=== PATIENT | female | born 1955 | race Two or more races ===

== ENCOUNTER 2018-07-31 18:08 | Emergency (ER) | payer OTHER, MEDICAID ==
[~2018-07-31] VITALS: Ht 157.5 cm; Wt 84.4 kg
[~2018-07-31 18:08] MED LIST: ALEN70TA2 PO; CHOL20007 PO; DOCU-94 PO; FOLI1TAB6 PO; GABA300C10 PO; HYDR-4441 OR; HYDR-4683 PO; LEUC5TAB PO; LORA10CA7 PO; METH2.5T3 PO; METO25TA62 PO; NARA2.5T PO; PANT1INJ3 IV; PANT40TA2 PO; QUET25TA37 PO; RIZA5TAB14 OR; SERT-138 PO; SIMV-8 PO; TOFA5TAB OR; TRAZ50TA2 PO; VENL75TA PO
[2018-07-31 21:05] VITALS: BP 155/70
[2018-07-31] MEDS ORDERED: HYDROcodone-ACET 10/325MG TAB PO ONE (22:45)
== END 2018-07-31 23:33 | disposition home or self-care (01) ==
LOC: ER 18:08
DX: S13.4XXA Sprain of ligaments of cervical spine, initial encounter (principal); S16.1XXA Strain of muscle, fascia and tendon at neck level, initial encounter; M19.90 Unspecified osteoarthritis, unspecified site; J44.9 Chronic obstructive pulmonary disease, unspecified; E78.5 Hyperlipidemia, unspecified; I10 Essential (primary) hypertension; Z79.899 Other long term (current) drug therapy; V49.49XA Driver injured in collision with other motor vehicles in traffic accident, initial encounter; Y93.89 Activity, other specified; Y99.8 Other external cause status; Y92.488 Other paved roadways as the place of occurrence of the external cause
CPT/HCPCS: 72040; 72100

== ENCOUNTER 2020-10-02 20:10 | Emergency (ER) | payer OTHER, MEDICAID ==
[~2020-10-02] VITALS: Ht 157.5 cm; Wt 83.0 kg
[~2020-10-02 20:10] MED LIST changes: +HYDR-4188 OR; -HYDR-4441 OR; -HYDR-4683 PO; +HYDR-4833 PO; +METH2.5T PO; -METH2.5T3 PO; -METO25TA62 PO; +METO25TA93 PO; -RIZA5TAB14 OR; +RIZA5TAB35 OR; -SERT-138 PO; +SERT50TA PO; -VENL75TA PO; +VENL75TA2 PO
[2020-10-02 21:58] VITALS: BP 126/85
== END 2020-10-02 22:38 | disposition home or self-care (01) ==
LOC: ER 20:13
DX: S62.647A Nondisplaced fracture of proximal phalanx of left little finger, initial encounter for closed fracture (principal); S80.212A Abrasion, left knee, initial encounter; S00.31XA Abrasion of nose, initial encounter; E78.5 Hyperlipidemia, unspecified; I10 Essential (primary) hypertension; J44.9 Chronic obstructive pulmonary disease, unspecified; Z79.899 Other long term (current) drug therapy; W19.XXXA Unspecified fall, initial encounter; Y93.89 Activity, other specified; Y92.89 Other specified places as the place of occurrence of the external cause; Y99.8 Other external cause status
CPT/HCPCS: 29130; 70486; 73100; 73140; 73562

== ENCOUNTER 2022-03-19 16:03 | Inpatient (IN) | payer OTHER, MEDICAID ==
[~2022-03-19] VITALS: Ht 157.5 cm; Wt 80.1 kg
[~2022-03-19 16:03] MED LIST changes: +VENL1TAB99 PO; -VENL75TA2 PO
[2022-03-19 16:55] LABS: Basophils # (auto) 0 10 ^3/uL (0-0.2); Basophils % (auto) 0.2 % (0.0-2.0); Eosinophils # (auto) 0.1 10 ^3/uL (0-0.8); Eosinophils % (auto) 0.8 % (0.0-7.0); Hematocrit 42.6 % (36.0-46.0); Hemoglobin 14.8 g/dL (12.2-16.2); Lymphocytes # (auto) 1.1 10 ^3/uL (0.4-5.4); Lymphocytes % (auto) 15.9 % (10.0-50.0); Mean Corpuscular Hemoglobin 32.9 pg (28.0-32.0); Mean Corpuscular Hgb Conc. 34.7 g/dL (32.0-36.0); Mean Corpuscular Volume 94.7 fL (80.0-100.0); Monocytes # (auto) 0.3 10 ^3/uL (0-1.3); Monocytes % (auto) 5.1 % (0.0-12.0); Neutrophils # (auto) 5.4 10 ^3/uL (1.6-8.6); Red Cell Distribution Width 14.4 % (11.8-14.3); White Blood Cell 6.9 10^3/uL (4.4-10.8)
[2022-03-19 17:13] LABS: Albumin 4.1 g/dL (3.4-5.0); BUN/Creatinine Ratio 16.7; Calcium 9.6 mg/dL (8.5-10.1); Potassium 3.3 mmol/L (3.5-5.1)
[2022-03-19 17:16] LABS: Bilirubin, Total 0.6 mg/dL (0.2-1.0); Total Protein 7.9 g/dL (6.4-8.2)
[2022-03-20] MEDS ORDERED: ACETAMINOPHEN 325 MG TAB PO PRN (03:30)
[2022-03-20] MEDS ORDERED: POTASSIUM CHL 20 Meq TABLET PO ONE (03:30)
[2022-03-20] MEDS ORDERED: ONDANSETRON HCL 4 MG/2 ML VIAL IV PRN (03:30)
[2022-03-20] MEDS ORDERED: HYDROcodone-ACET 5/325MG TAB PO PRN (03:30)
[2022-03-20] MEDS ORDERED: SUMAtriptan SUCCINATE 25 MG TAB PO PRN (03:30)
[2022-03-20] MEDS ORDERED: MECLIZINE HCL 25 MG TAB PO ONE (03:45)
[2022-03-20] MEDS ORDERED: MECLIZINE HCL 25 MG TAB PO PRN (03:45)
[2022-03-20 09:30] VITALS: BP 139/78
[2022-03-20] MEDS: GABAPENTIN 300 MG CAP PO SCH ×2 (10:04→22:09)
[2022-03-20] MEDS: SERTRALINE HCL 50 MG TAB PO SCH (10:04)
[2022-03-20] MEDS: PANTOPRAZOLE 40 MG TAB PO SCH (10:04)
[2022-03-20] MEDS: hydrOXYchloroQUINE SULFATE 200 MG TAB PO SCH ×2 (10:05→22:09)
[2022-03-20] MEDS ORDERED: ASPirin 81 mg TAB PO ONE (13:00)
[2022-03-20 22:00] VITALS: BP 107/59
[2022-03-20] MEDS ORDERED: METOPROLOL SUCCINATE XL 50 MG TAB PO SCH (22:00)
[2022-03-20] MEDS ORDERED: ATORVASTATIN 20 MG TAB PO SCH (22:00)
[2022-03-20 23:55] VITALS: BP 107/59
[2022-03-21 04:18] VITALS: BP 107/59
[2022-03-21 05:46] VITALS: BP 117/64
[2022-03-21 06:04] LABS: Basophils # (auto) 0 10 ^3/uL (0-0.2); Basophils % (auto) 0.4 % (0.0-2.0); Eosinophils # (auto) 0.1 10 ^3/uL (0-0.8); Eosinophils % (auto) 1.9 % (0.0-7.0); Hemoglobin 14.2 g/dL (12.2-16.2); Lymphocytes # (auto) 1.6 10 ^3/uL (0.4-5.4); Lymphocytes % (auto) 33.6 % (10.0-50.0); Mean Corpuscular Hemoglobin 32.8 pg (28.0-32.0); Mean Corpuscular Hgb Conc. 34.6 g/dL (32.0-36.0); Mean Corpuscular Volume 94.8 fL (80.0-100.0); Monocytes # (auto) 0.4 10 ^3/uL (0-1.3); Monocytes % (auto) 8.7 % (0.0-12.0); Neutrophils # (auto) 2.7 10 ^3/uL (1.6-8.6); Neutrophils % (auto) 55.4 % (37.0-80.0); Nucleated Red Blood Cells % 0.1 %; Red Blood Cells 4.33 10^6/uL (4.0-5.20); Red Cell Distribution Width 14.1 % (11.8-14.3); White Blood Cell 4.8 10^3/uL (4.4-10.8)
[2022-03-21 06:14] LABS: BUN/Creatinine Ratio 17.3; Potassium 3.9 mmol/L (3.5-5.1)
[2022-03-21 09:00] VITALS: BP 106/56
[2022-03-21] MEDS: SERTRALINE HCL 50 MG TAB PO SCH (09:25)
[2022-03-21] MEDS: hydrOXYchloroQUINE SULFATE 200 MG TAB PO SCH (09:25)
[2022-03-21] MEDS: PANTOPRAZOLE 40 MG TAB PO SCH (09:25)
[2022-03-21] MEDS: GABAPENTIN 300 MG CAP PO SCH (09:25)
[2022-03-21] MEDS ORDERED: ASPirin 81 mg TAB PO SCH (10:00)
[2022-03-21 10:27] VITALS: BP 106/56
== END 2022-03-21 13:11 | disposition home or self-care (01) | DRG 149 ==
LOC: ER 16:03 → OVERFLOW 03-20 03:29 → CENTRAL 03-20 08:39
PROVIDERS: ADMIT Nurse Practitioner; ATTEND Family Medicine
PROC: 5A09357 Assistance with Respiratory Ventilation, Less than 24 Consecutive Hours, Continuous Positive Airway Pressure (ICD-10-PCS; principal; 2022-03-20)
DX: H81.10 Benign paroxysmal vertigo, unspecified ear (principal); G45.9 Transient cerebral ischemic attack, unspecified; E78.5 Hyperlipidemia, unspecified; E87.6 Hypokalemia; G47.30 Sleep apnea, unspecified; I10 Essential (primary) hypertension; E66.9 Obesity, unspecified; F32.A Depression, unspecified; G43.909 Migraine, unspecified, not intractable, without status migrainosus; M19.90 Unspecified osteoarthritis, unspecified site; M54.50 Low back pain, unspecified; Z20.822 Contact with and (suspected) exposure to COVID-19; J44.9 Chronic obstructive pulmonary disease, unspecified; M06.9 Rheumatoid arthritis, unspecified; Z79.82 Long term (current) use of aspirin; Z86.73 Personal history of transient ischemic attack (TIA), and cerebral infarction without residual deficits; Z79.899 Other long term (current) drug therapy; Z68.32 Body mass index [BMI] 32.0-32.9, adult; Z82.49 Family history of ischemic heart disease and other diseases of the circulatory system; Z83.3 Family history of diabetes mellitus
CPT/HCPCS: 36415; 70450; 70551; 71046; 80048; 80053; 83735; 84484; 85025; 93306; 93886; 94660; G0378